=== PATIENT | female | born 1985 | race Caucasian/White ===

== ENCOUNTER 2016-12-11 05:20 | Inpatient (IN) | payer OTHER ==
[2016-12-11 06:32] LABS: Hematocrit 39 % (35-47); Hemoglobin 13.3 g/dl (12.0-16.0); Mean Corpuscular HGB Conc 34 g/dl (31-36); Mean Corpuscular Hemoglobin 29 pg (27-31); Mean Corpuscular Volume 85 fL (80-97); Mean Platelet Volume 8 um3 (7.4-10.4); Red Blood Count 4.57 10^6/ul (4.0-5.4); Red Cell Distribution Width 15 % (10.5-15); White Blood Count 10.2 10^3/ul (3.5-10.8)
[2016-12-11 07:08] LABS: Albumin 3.2 g/dL (3.2-5.2); Calcium 9.1 mg/dL (8.6-10.3); EGFR African American 175.4 (>60); EGFR Non-African American 136.4 (>60); Globulin 2.7 g/dL (2-4); Potassium 3.7 mmol/L (3.5-5.0); Total Bilirubin 0.7 mg/dL (0.2-1.0); Total Protein 5.9 g/dL (6.4-8.9); Uric Acid 4.2 mg/dL (2.3-6.6)
[2016-12-11] MEDS ORDERED: OBEPIDURAL* 250 ML ONE (08:23)
[2016-12-11] MEDS ORDERED: Phenylephrine IV* 40 MCG/ML 10 ML SYRINGE IV PUSH PRN ×2 (09:07)
[2016-12-11] MEDS ORDERED: Sodium Citrate/Citric Acid* 15 ML UDC PO PRN (09:07)
[2016-12-11] MEDS ORDERED: Famotidine TAB* 20 MG PO PRN (09:07)
[2016-12-11] MEDS ORDERED: OBEPIDURAL* 250 ML EPIDURAL SCH (10:00)
[2016-12-11] MEDS ORDERED: Oxytocin in LR* 20 UNITS/1,000 ML BAG IVPB SCH ×2 (17:00→23:00)
[2016-12-11] MEDS ORDERED: oxyCODONE/Acetamin 5/325 MG* TAB PO PRN ×2 (22:32)
[2016-12-11] MEDS ORDERED: Witch Hazel PAD* JAR TOPICAL PRN (22:32)
[2016-12-11] MEDS ORDERED: Acetaminophen TAB* 325 MG PO PRN (22:32)
[2016-12-11] MEDS ORDERED: Dibucaine 1% 28.35 GM TUBE PR PRN (22:32)
[2016-12-11] MEDS: Ibuprofen TAB* 600 MG PO PRN (23:54)
[2016-12-12 08:15] LABS: Hematocrit 32 % (35-47); Hemoglobin 10.8 g/dl (12.0-16.0); Mean Corpuscular HGB Conc 33 g/dl (31-36); Mean Corpuscular Hemoglobin 29 pg (27-31); Mean Corpuscular Volume 86 fL (80-97); Mean Platelet Volume 8 um3 (7.4-10.4); Red Blood Count 3.77 10^6/ul (4.0-5.4); Red Cell Distribution Width 15 % (10.5-15)
[2016-12-12] MEDS ORDERED: Simethicone TAB* 80 MG TAB.CHEW PO SCH (08:30)
[2016-12-12] MEDS: Ferrous Gluconate TAB* 324 MG TAB PO SCH ×2 (08:52→23:57)
[2016-12-12] MEDS: Docusate CAP* 100 MG PO SCH ×3 (08:52→21:12)
[2016-12-12] MEDS: Ibuprofen TAB* 600 MG PO PRN ×3 (09:01→22:51)
[2016-12-13 08:06] VITALS: BP 131/74
[2016-12-13] MEDS: Docusate CAP* 100 MG PO SCH (08:12)
[2016-12-13] MEDS: Ibuprofen TAB* 600 MG PO PRN (08:12)
[2016-12-13] MEDS: Ferrous Gluconate TAB* 324 MG TAB PO SCH (08:50)
--- NOTE | 2016-12-13 11:06 | PTEDU ---
Patient Name: SIMONE BARCLAY NINGSIMONE selected video: Never Ever Shake a Baby to view on 12/13/2016 at 11:05:14 AM from [facility] [email or web address] _
== END 2016-12-13 14:15 | disposition home or self-care (01) | DRG 775 ==
LOC: MCHOBOUT 05:20 → MCHOB 06:08
PROVIDERS: ADMIT Nurse Practitioner; ATTEND Obstetrics & Gynecology
PROC: 10D07Z6 Extraction of Products of Conception, Vacuum, Via Natural or Artificial Opening (ICD-10-PCS; principal; 2016-12-11)
PROC: 0DQR0ZZ Repair Anal Sphincter, Open Approach (ICD-10-PCS; 2016-12-11)
DX: O62.1 Secondary uterine inertia (principal); O70.20 Third degree perineal laceration during delivery, unspecified; Z37.0 Single live birth; Z3A.40 40 weeks gestation of pregnancy
CPT/HCPCS: 36415; 80053; 84550; 85025; 85027; 86850; 86900; 86901; A9270-GY

== ENCOUNTER 2024-03-28 09:54 | Inpatient (IN) ==
[2024-03-28] MEDS ORDERED: Lidocaine 1% VIAL 10 MG/ML 30 ML VIAL INJ PRN (11:08)
[2024-03-28 12:56] LABS: ABS Lymphocytes 2.3 10^3/uL (1.0-4.8); ABS Monocytes 0.5 10^3/uL (0.0-0.9); ABS Neutrophils 5.5 10^3/uL (1.5-7.6); ABS Nucleated RBC 0.01 10^3/ul; Eosinophil % 0.6 %; Hematocrit 37.4 % (35-45); Hemoglobin 12.9 g/dL (11.5-14.3); Lymphocyte % 27.2 %; Mean Corpuscular Hemoglobin 28.7 pg (27-33); Mean Corpuscular Hgb Conc 34.5 g/dL (31-36); Mean Corpuscular Volume 83.1 fL (80-97); Mean Platelet Volume 8.6 fL (7.5-11.2); Nucleated Red Blood Cells % 0.1 %/100WBC (0.0-0.8); Platelet Count 326 10^3/uL (150-450); Red Blood Count 4.51 10^6/uL (3.63-4.92); Red Cell Distribution Width 14.9 % (12-17); White Blood Count 8.3 10^3/uL (3.8-11.8)
[2024-03-28] MEDS: miSOPROStol 100 mcg TAB PO ONE (12:59)
[2024-03-28 13:05] LABS: Urine Benzodiazepine Screen None Detected (None Detect); Urine Cannabinoids Screen None Detected (None Detect); Urine Opiates Screen None Detected (None Detect)
[2024-03-28 13:52] LABS: ALT 14 U/L (7-52); Albumin 3.5 g/dL (3.2-5.2); Albumin/Globulin Ratio 1.2 (1-3); Alkaline Phosphatase 159 U/L (35-149); Anion Gap 10 mmol/L (2-16); Blood Urea Nitrogen 9 mg/dL (6-24); CO2 Carbon Dioxide 17 mmol/L (22-32); Calcium 9.7 mg/dL (8.6-10.3); Chloride 106 mmol/L (101-111); Creatinine, Serum 0.64 mg/dL (0.51-0.95); Globulin 2.9 g/dL (2-4); Glucose 79 mg/dL (70-100); Sodium 133 mmol/L (135-145); Total Bilirubin 0.6 mg/dL (0.2-1.0); Total Protein 6.4 g/dL (6.4-8.9); eGFR CKD-EPI 117.4 (>60)
[2024-03-28 15:21] LABS: Urine Creatinine Concentration 252.18 mg/dL (20.00-320.00); Urine TP Creat Ratio 0.14 mg/mg
[2024-03-28] MEDS ORDERED: miSOPROStol 100 mcg TAB PO ONE ×2 (15:30→17:00)
[2024-03-28] MEDS: miSOPROStol 100 mcg TAB VAGINAL ONE (17:20)
[2024-03-28] MEDS: Lactated Ringers 1000 ml BAG 1,000 ML IV SCH (17:50)
[2024-03-28] MEDS: Oxytocin in LR 20,000 MILLI.UNIT/1,000 ML BAG IV SCH (18:10)
[2024-03-29] MEDS ORDERED: Sodium Citrate/Citric Acid LIQ 15 ML UDC PO PRN (00:17)
[2024-03-29] MEDS ORDERED: Phenylephrine 40 mcg/mL 10mL (400mcg) SYRINGE IV PUSH PRN (00:17)
[2024-03-29] MEDS: Phenylephrine 40 mcg/mL 10mL (400mcg) SYRINGE IV PUSH PRN (00:22)
[2024-03-29] MEDS: Lactated Ringers 1000 ml BAG 1,000 ML IV SCH (00:33)
[2024-03-29] MEDS: Lactated Ringers 1000 ml BAG 1,000 ML IV ONE (00:34)
[2024-03-29] MEDS: OBEPIDURAL (200 ML) 200 ML EPIDURAL ONE (00:34)
[2024-03-29] MEDS: Lidocaine 1.5% EPI 1:200,000 30 ML SDV ONE (00:35)
[2024-03-29] MEDS: OBEPIDURAL (200 ML) 200 ML EPIDURAL SCH (00:35)
[2024-03-29 01:35] LABS: Urine Appearance Clear; Urine Bilirubin Negative (Negative); Urine Blood Trace (Negative); Urine Color Light-Yellow; Urine Glucose Negative (Negative); Urine Ketones Negative (Negative); Urine Nitrite Negative (Negative); Urine Protein Negative (Negative); Urine Specific Gravity 1.012 (1.002-1.030); Urine Urobilinogen Negative (Negative)
[2024-03-29] MEDS ORDERED: Acetaminophen IV 1 GM/100ML 1,000 MG/100 ML BAG IV PRN (04:21)
[2024-03-29] MEDS ORDERED: Naloxone 0.4 mg VIAL 0.4 mg/ml 1 ml VIAL IV PUSH PRN (04:21)
[2024-03-29] MEDS ORDERED: Ondansetron 4 mg VIAL 2 MG/ML 2 ml VIAL IV PRN (04:21)
[2024-03-29] MEDS ORDERED: Metoclopramide 5 MG/ML VIAL (10 mg) IV PRN (04:21)
[2024-03-29] MEDS ORDERED: fentaNYL 100 mcg/2 ml 50 MCG/ML VIAL ONE (04:55)
[2024-03-29] MEDS ORDERED: Chloroprocaine 3% 20 ml VIAL ONE (04:55)
[2024-03-29] MEDS ORDERED: Ondansetron 4 mg VIAL 2 MG/ML 2 ml VIAL ONE (04:58)
[2024-03-29] MEDS ORDERED: Dexamethasone IV 4 MG/ML VIAL 1 ml VIAL ONE (04:58)
[2024-03-29] MEDS ORDERED: Oxytocin 10 UNITS/ML 1 ML VIAL ONE (04:58)
[2024-03-29] MEDS ORDERED: Phenylephrine IV 10 MG/ML 1 ml VIAL ONE (05:00)
[2024-03-29] MEDS ORDERED: Lidocaine 2% w/ EPI 1:200,000 MPF 20 ML SDV VIAL ONE (05:40)
[2024-03-29] MEDS ORDERED: Acetaminophen IV 1 GM/100ML 1,000 MG/100 ML BAG IV ONE (05:43)
[2024-03-29] MEDS ORDERED: Morphine PF AMP (0.5MG/ML) 5 MG/10 ML AMP ONE (05:49)
[2024-03-29] MEDS: ceFOXitin 2 GM IVPREMIX 2 GM/50 ML BAG IVPB ONE (06:14)
[2024-03-29] MEDS ORDERED: Dibucaine 1% OINT 28.35 GM TUBE PR PRN (06:27)
[2024-03-29] MEDS ORDERED: Witch Hazel PAD JAR TOPICAL PRN (06:27)
[2024-03-29] MEDS ORDERED: Glycerin ADULT 2.4 gm SUPP PR PRN (06:27)
[2024-03-29] MEDS: Oxytocin in LR 20,000 MILLI.UNIT/1,000 ML BAG IV SCH (06:51)
[2024-03-29] MEDS ORDERED: Lactated Ringers 1000 ml BAG 1,000 ML IV SCH (07:00)
[2024-03-30 07:09] LABS: ABS Lymphocytes 2.3 10^3/uL (1.0-4.8); ABS Monocytes 0.6 10^3/uL (0.0-0.9); ABS Neutrophils 7.2 10^3/uL (1.5-7.6); Eosinophil % 0.4 %; Hemoglobin 10.9 g/dL (11.5-14.3); Lymphocyte % 22.5 %; Mean Corpuscular Hemoglobin 29.2 pg (27-33); Mean Corpuscular Hgb Conc 35.1 g/dL (31-36); Mean Corpuscular Volume 83.2 fL (80-97); Mean Platelet Volume 8.5 fL (7.5-11.2); Platelet Count 211 10^3/uL (150-450); Red Blood Count 3.73 10^6/uL (3.63-4.92); Red Cell Distribution Width 15.1 % (12-17); White Blood Count 10.2 10^3/uL (3.8-11.8)
[2024-04-01 13:47] VITALS: BP 119/72
== END 2024-04-01 12:03 | disposition home or self-care (01) | DRG 540 ==
LOC: MCHOBOUT 09:54 → MCHOB 10:32
PROVIDERS: ADMIT Midwife; ATTEND Midwife